=== PATIENT | female | born 1995 | race African-American/Black ===

== ENCOUNTER 2017-03-04 10:08 | Emergency (ER) | payer OTHER, SELFPAY | END 2017-03-04 10:41 | disposition home or self-care (01) | LOC: ERS 10:08 | DX: J02.9 Acute pharyngitis, unspecified (principal) | CPT/HCPCS: 87081; 87430; 99283 ==

== ENCOUNTER 2017-07-19 17:30 | Emergency (ER) | payer SELFPAY ==
[2017-07-19 17:48] LABS: Bilirubin Negative (Negative); Blood, Urine Trace (Negative); Clarity CLOUDY (Clear); Glucose, Urine (Dipstick) Negative (Negative); Leukocyte Large (Negative); Protein, Urine (Dipstick) Trace mg/dL (Neg-Trace); Specific Gravity, Urine 1.013 (1.002-1.036)
[2017-07-19 17:49] LABS: Pathc Cast-AUWi Flag 1.45 (0-2.49); Pregnancy Test - Urine (BHCG) Negative (Negative); Pregu Control Background? CLEAR/WHITE (CLR/WHITE); Pregu Control Bar Appear? YES (CONTROL BAR); Specific Gravity 1.013 (1.002-1.036)
[2017-07-19 18:02] LABS: Nitrite Unable to Interpret (Negative)
[2017-07-19 18:03] LABS: Crystals/HPF None Seen HPF (Negative); Hyaline Casts/LPF 0-3 HYALINE CAST LPF (0-3 Hyaline); Trichomonas/HPF 1+ HPF (None Seen)
[2017-07-19 18:05] LABS: Bacteria/HPF 2+ HPF (None Seen)
[2017-07-19 18:38] LABS: #Eosinphils 0.1 thou/uL (0.0-0.7); #Lymphocytes 1.9 thou/uL (1.20-3.40); #Monocytes 2.2 thou/uL (0.11-0.59); #Neutrophils 15.1 thou/uL (1.40-6.50); %Basophils 0.2 % (0.0-1.0); %Eosinophils 0.3 % (0.0-10.0); %Lymphocytes 9.8 % (21.0-51.0); %Monocytes 11.5 % (0.0-10.0); %Neutrophils 78.2 % (42.0-75.0); Mean Corpuscular HGB CONC 33.7 g/dL (32.0-36.0); Mean Corpuscular Hemoglobin 30.5 pg (27.0-31.0); Mean Corpuscular Volume 90.4 fl (81.0-99.0); Mean Platelet Volume 7.5 fL (7.4-10.4); Platelet Count 284 thou/uL (130-400); RBC Distribution Width 11.9 % (11.5-14.5); Red Blood Cell (RBC) Count 4.92 mill/uL (4.20-5.40); White Blood Cell (WBC) Count 19.3 thou/uL (4.8-10.8)
[2017-07-19 18:54] LABS: Anion Gap 14 mmol/L (10-20); BUN (Urea Nitrogen) 8 mg/dL (7.0-18.7); Calc. Creatinine Clearance 0 mL/min (70-130); Carbon Dioxide 21 mmol/L (22-29); Chloride 105 mmol/L (98-107); Estimated GFR-MDRD Greater than 90; Glucose 97 mg/dL (70-105); Potassium 4.1 mmol/L (3.5-5.1); Sodium 136 mmol/L (136-145)
[2017-07-19] MEDS ORDERED: Ketorolac Tromethamine 30 MG/ML VIAL ONE (19:18)
[2017-07-19] MEDS ORDERED: Acetaminophen 500 MG TAB ONE (19:18)
[2017-07-19] MEDS ORDERED: cefTRIAXone\\ROCEPHIN 250 MG VIAL ONE (21:04)
[2017-07-19] MEDS ORDERED: Lidocaine 1% PF 5 ML VIAL ONE (21:04)
[2017-07-21 18:00] LABS: Chlamydia by PCR Not Detected (NotDetected); GC by PCR Not Detected (NotDetected)
== END 2017-07-19 21:43 | disposition home or self-care (01) ==
LOC: ERS 17:30
DX: A59.01 Trichomonal vulvovaginitis (principal); N76.0 Acute vaginitis; N39.0 Urinary tract infection, site not specified
CPT/HCPCS: 36415; 80048; 81003; 81015; 81025; 85025; 87077; 87086; 87186; 87480; 87491; 87510; 87591; 87660; 96372; J0696; J1885; J2001

== ENCOUNTER 2020-07-11 18:32 | Emergency (ER) | payer SELFPAY ==
[2020-07-11] MEDS ORDERED: Dexamethasone 10 MG/ML VIAL ONE (20:22)
== END 2020-07-11 20:38 | disposition home or self-care (01) ==
LOC: ERS 18:32
DX: J02.9 Acute pharyngitis, unspecified (principal)
CPT/HCPCS: 87081; 87430; 99283; J1100

== ENCOUNTER 2020-07-26 23:16 | Emergency (ER) | payer SELFPAY | END 2020-07-27 00:43 | disposition left against medical advice (07) | LOC: ERS 23:16 | DX: Z53.21 Procedure and treatment not carried out due to patient leaving prior to being seen by health care provider (principal) ==

== ENCOUNTER 2021-01-09 20:35 | Emergency (ER) | payer SELFPAY ==
[2021-01-10 08:20] LABS: SARS-CoV-2 PCR by NAA Not Detected (NotDetected)
== END 2021-01-09 21:42 | disposition home or self-care (01) ==
LOC: ERS 20:35
DX: R09.81 Nasal congestion (principal); R05 Cough; R06.02 Shortness of breath; Z20.822 Contact with and (suspected) exposure to COVID-19
CPT/HCPCS: 99284; U0003; U0005

== ENCOUNTER 2021-03-27 18:28 | Emergency (ER) | payer SELFPAY ==
[2021-03-27] MEDS ORDERED: Acetaminophen 500 MG TAB ONE (19:44)
[2021-03-28 08:54] LABS: SARS-CoV-2 PCR by NAA DETECTED (NotDetected)
== END 2021-03-27 20:25 | disposition home or self-care (01) ==
LOC: ERS 18:28
DX: U07.1 COVID-19 (principal); J06.9 Acute upper respiratory infection, unspecified
CPT/HCPCS: 87804; 99283; U0003; U0005

== ENCOUNTER 2021-04-12 09:05 | Emergency (ER) | payer SELFPAY | END 2021-04-12 10:11 | disposition left against medical advice (07) | LOC: ERS 09:05 | DX: Z53.21 Procedure and treatment not carried out due to patient leaving prior to being seen by health care provider (principal) ==

== ENCOUNTER 2023-02-27 16:25 | Emergency (ER) | payer SELFPAY, OTHER ==
[2023-02-27 17:57] LABS: #Basophils 0.1 thou/uL (0.0-0.2); #Eosinphils 0.1 thou/uL (0.0-0.7); #Monocytes 1.2 thou/uL (0.11-0.59); #Neutrophils 16.1 thou/uL (1.40-6.50); %Basophils 0.3 % (0.0-1.0); %Eosinophils 0.6 % (0.0-10.0); %Lymphocytes 14.1 % (21.0-51.0); %Monocytes 5.8 % (0.0-10.0); %Neutrophils 78.8 % (42.0-75.0); Hematocrit 36.9 % (36.0-47.0); Hemoglobin 12.2 g/dL (12.0-16.0); Mean Corpuscular HGB CONC 33.1 g/dL (32.0-36.0); Mean Corpuscular Hemoglobin 30.7 pg (27.0-31.0); Mean Corpuscular Volume 92.7 fl (78.0-98.0); Mean Platelet Volume 9.8 fL (7.4-10.4); Platelet Count 286 10x3/uL (130-400); RBC Distribution Width 12.8 % (11.5-14.5); Red Blood Cell (RBC) Count 3.98 mill/uL (4.20-5.40); White Blood Cell (WBC) Count 20.4 10x3/uL (4.8-10.8)
[2023-02-27] MEDS ORDERED: Piperacillin/Tazobactam 3.375 GM VIAL ONE (18:43)
[2023-02-27] MEDS ORDERED: Ondansetron PF 4 MG/2 ML Vial ONE (18:43)
[2023-02-27] MEDS ORDERED: Sodium Chloride 0.9% 100 ML ONE (18:43)
[2023-02-27] MEDS ORDERED: Morphine 4 MG/ML VIAL ONE (18:43)
[2023-02-27 19:13] LABS: Anion Gap 12 mmol/L (10-20); BUN (Urea Nitrogen) 12 mg/dL (7.0-18.7); Calc. Creatinine Clearance 0 mL/min (70-130); Calcium 8.6 mg/dL (7.8-10.44); Carbon Dioxide 18 mmol/L (22-29); Chloride 107 mmol/L (98-107); Estimated GFR 106; Glucose 111 mg/dL (70-105); Lipase 10 U/L (8-78); Potassium 3.4 mmol/L (3.5-5.1); Sodium 134 mmol/L (136-145)
[2023-02-27] MEDS ORDERED: Ketorolac Tromethamine 30 MG/ML VIAL ONE (20:20)
== END 2023-02-27 22:22 | disposition home or self-care (01) ==
LOC: ERS 16:25
DX: O99.611 Diseases of the digestive system complicating pregnancy, first trimester (principal); O20.8 Other hemorrhage in early pregnancy; Z3A.01 Less than 8 weeks gestation of pregnancy
CPT/HCPCS: 36415; 74181; 76856; 80048; 83690; 84702; 85025; 86850; 86900; 86901; 87040; 96361; 96365; 96375; J1885; J2270; J2405; J2543; J3490

== ENCOUNTER 2023-03-04 22:20 | Emergency (ER) | payer SELFPAY, OTHER | END 2023-03-05 00:01 | disposition home or self-care (01) | LOC: ERS 22:20 | DX: O03.4 Incomplete spontaneous abortion without complication (principal) | CPT/HCPCS: 36415; 84702; 99284 ==

== ENCOUNTER 2023-10-02 04:12 | Emergency (ER) | payer SELFPAY ==
[2023-10-02] MEDS ORDERED: HYDROcodone/Acetaminophen 10/325 mg Tablet ONE (04:34)
== END 2023-10-02 05:51 | disposition home or self-care (01) ==
LOC: ERS 04:12
DX: S60.011A Contusion of right thumb without damage to nail, initial encounter (principal); W23.0XXA Caught, crushed, jammed, or pinched between moving objects, initial encounter
CPT/HCPCS: 11740